=== PATIENT | female | born 1965 | race Caucasian/White ===

== ENCOUNTER → 2016-12-29 | Outpatient (CLI) | payer MEDICARE, MEDICAID ==
[~2016-12-29] MED LIST: ACET-3161 GT; AMIT10TA6 PO; AMLO5TAB88 PO; AMYL1CAP61 PO; ATOR20TA65 PO; CALC500T62 PO; CEPH500C2 PO; DICY10CA88 PO; ERGO400C PO; ESTR1PAT63; FAMO-38 PO; FURO-151 PO; GABA-531 PO; LIDO700A TP; LISI10TA5 PO; POTA20TA82 PO; ZOLP5TAB2 PO
== END | disposition home or self-care (01) ==
LOC: MAMMO 09:55
PROVIDERS: ATTEND Internal Medicine Nephrology
DX: Z12.31 Encounter for screening mammogram for malignant neoplasm of breast (principal)
CPT/HCPCS: G0202

== ENCOUNTER → 2017-12-30 | Outpatient (CLI) | payer MEDICARE, MEDICAID | END | disposition home or self-care (01) | LOC: MAMMO 09:33 | PROVIDERS: ATTEND Internal Medicine Nephrology | DX: Z12.31 Encounter for screening mammogram for malignant neoplasm of breast (principal) | CPT/HCPCS: 77067 ==

== ENCOUNTER → 2018-06-26 | Outpatient (CLI) | payer MEDICARE, MEDICAID | END | disposition home or self-care (01) | LOC: RAD 09:56 | PROVIDERS: ATTEND Podiatrist Foot & Ankle Surgery | DX: M20.42 Other hammer toe(s) (acquired), left foot (principal); M20.41 Other hammer toe(s) (acquired), right foot | CPT/HCPCS: 73630 ==

== ENCOUNTER → 2018-07-19 | Outpatient (CLI) | payer MEDICARE, MEDICAID | END | disposition home or self-care (01) | LOC: RAD 10:49 | PROVIDERS: ATTEND Internal Medicine Nephrology | DX: I51.7 Cardiomegaly (principal) | CPT/HCPCS: 71045 ==

== ENCOUNTER 2018-09-09 21:27 | Emergency (ER) | payer MEDICARE, MEDICAID ==
[~2018-09-09] VITALS: Ht 165.1 cm; Wt 86.0 kg
[~2018-09-09 21:27] MED LIST changes: -ACET-3161 GT; +ALEN70TA46 PO; -AMLO5TAB88 PO; +ASPI-1079 PO; +CELE-84 PO; -CEPH500C2 PO; +CHOL500051 PO; +CITA20SO PO; -ESTR1PAT63; -FAMO-38 PO; +HYDR-4009 PO; -LIDO700A TP; +LIP40 PO; -LISI10TA5 PO; +MAGN400T27 PO; +NYST15PO4 TP; +PANT40TA4 PO; +TRAM100C3 PO; +TRAM50TA94 PO
[2018-09-09 21:39] VITALS: BP 110/71
== END 2018-09-10 00:01 | disposition left against medical advice (07) ==
LOC: ER 21:27
DX: M54.9 Dorsalgia, unspecified (principal); Z53.21 Procedure and treatment not carried out due to patient leaving prior to being seen by health care provider

== ENCOUNTER → 2019-06-04 | Outpatient (CLI) | payer MEDICARE, MEDICAID ==
[~2019-06-04] MED LIST changes: -ALEN70TA46 PO; +ALEN70TA68 PO; -CITA20SO PO; +CITA20SO2 PO
== END | disposition home or self-care (01) ==
LOC: LAB 10:36
PROVIDERS: ATTEND Podiatrist Foot & Ankle Surgery
DX: M77.52 Other enthesopathy of left foot and ankle (principal)
CPT/HCPCS: 73630

== ENCOUNTER 2019-10-12 13:23 | Emergency (ER) | payer MEDICARE, MEDICAID ==
[~2019-10-12] VITALS: Ht 165.1 cm; Wt 89.0 kg
[~2019-10-12 13:23] MED LIST changes: -CLOT15CR5 TP; -DICL25TA2 PO; -FURO20TA4 PO; -GABA-529 PO
[2019-10-12 13:51] VITALS: BP 142/85
== END 2019-10-12 16:39 | disposition home or self-care (01) ==
LOC: ER 13:23
DX: L30.4 Erythema intertrigo (principal); Z79.899 Other long term (current) drug therapy; Z90.710 Acquired absence of both cervix and uterus
CPT/HCPCS: 99282

== ENCOUNTER → 2019-10-12 | Outpatient (CLI) | payer MEDICARE, MEDICAID ==
[~2019-10-12] MED LIST changes: +CLOT15CR5 TP; +DICL25TA2 PO; +FURO20TA4 PO; +GABA-529 PO; -MAGN400T27 PO; +MAGN400T8 PO
== END | disposition home or self-care (01) ==
LOC: RAD 12:20
PROVIDERS: ATTEND Internal Medicine Nephrology
DX: R06.02 Shortness of breath (principal)
CPT/HCPCS: 71045

== ENCOUNTER 2019-10-29 11:37 | Day surgery (SDC) | payer MEDICARE, MEDICAID ==
[~2019-10-29] VITALS: Ht 157.5 cm; Wt 88.9 kg
[~2019-10-29 11:37] MED LIST changes: +CLOT15CR5 TP
[2019-10-29] MEDS ORDERED: LACTATED RINGERS 1,000 ML IV SCH (12:35)
[2019-10-29] MEDS ORDERED: LIDOCAINE HCL 1% 20ML VIAL (Pyxis) INJ ONE (13:06)
[2019-10-29] MEDS ORDERED: BUPIVACAINE HCL/PF 0.5% (5MG/ML) 10ML ONE (13:06)
[2019-10-29] MEDS ORDERED: TRIAMCINOLONE ACETONIDE 40MG/ML 1ML VIAL ONE (13:06)
[2019-10-29] MEDS ORDERED: GENTAMICIN SULF 40MG/ML 2ML VIAL ONE (13:06)
[2019-10-29] MEDS ORDERED: BACITRACIN 50,000 UNITS/VIAL ONE (13:07)
[2019-10-29] MEDS ORDERED: GABA-529 PO (13:16)
[2019-10-29] MEDS ORDERED: FURO20TA4 PO (13:18)
[2019-10-29] MEDS ORDERED: DICL25TA2 PO (13:20)
[2019-10-29] MEDS ORDERED: HYDROMORPHONE HCL/PF 2MG/ML CPJ IV PRN (14:00)
[2019-10-29] MEDS ORDERED: ONDANSETRON HCL 4MG/2ML INJ IV PRN (14:00)
[2019-10-29] MEDS ORDERED: FENTANYL CITRATE/PF 50MCG/ML 2ML VIAL IV PRN (14:00)
== END 2019-10-29 17:15 | disposition home or self-care (01) ==
LOC: OR 11:37
PROVIDERS: ATTEND Podiatrist Foot & Ankle Surgery
DX: M20.42 Other hammer toe(s) (acquired), left foot (principal); M79.672 Pain in left foot; E78.00 Pure hypercholesterolemia, unspecified; Z85.43 Personal history of malignant neoplasm of ovary; Z79.899 Other long term (current) drug therapy; Z79.82 Long term (current) use of aspirin; Z90.710 Acquired absence of both cervix and uterus; Z98.890 Other specified postprocedural states
CPT/HCPCS: 28285; 73630; 88304; 88311; J0690; J1100; J1885; J2250; J2405; J2704; J3010; J3490; J1580; J3301

== ENCOUNTER 2023-06-26 14:23 | Emergency (ER) | payer MEDICARE, MEDICAID ==
[~2023-06-26] VITALS: Ht 160 cm; Wt 100.0 kg
[~2023-06-26 14:23] MED LIST changes: -ALEN70TA68 PO; +ALEN70TA79 PO; -CELE-84 PO; +DICL25TA10 PO; +DICY-18 PO; -DICY10CA88 PO; +FURO20TA4 PO; +GABA-529 PO; -GABA-531 PO; +MAGN400T55 PO; -MAGN400T8 PO; -PANT40TA4 PO; +PANT40TA51 PO; +POTA-205 PO; -POTA20TA82 PO; -TRAM100C3 PO
[2023-06-26 14:35] VITALS: O2SAT 97
[2023-06-26] MEDS ORDERED: IBUPROFEN 600MG TABLET PO STA (16:02)
[2023-06-26] MEDS ORDERED: HYDR-4001 MT (16:54)
[2023-06-26] MEDS ORDERED: NAPR-681 PO (16:54)
[2023-06-26 19:53] VITALS: BP 142/85; PULSE 91; RESP 18; TEMP 98.3
== END 2023-06-26 19:53 | disposition home or self-care (01) ==
LOC: ER 14:30
DX: M79.642 Pain in left hand (principal); I10 Essential (primary) hypertension; Z79.899 Other long term (current) drug therapy; W18.30XA Fall on same level, unspecified, initial encounter; Y93.89 Activity, other specified; Y92.89 Other specified places as the place of occurrence of the external cause; Y99.8 Other external cause status
CPT/HCPCS: 29125; 73090; 73130; 99284; A4565

== ENCOUNTER → 2025-03-12 | Outpatient (CLI) | payer MEDICARE, MEDICAID ==
[~2025-03-12] MED LIST changes: +HYDR-4001 MT; +NAPR-681 PO; +NYST15PO13 TP; -NYST15PO4 TP
[2025-03-12 10:37] LABS: BASOPHILS % 0.3 % (0.0-2.0); EOSINOPHILS % 1.3 % (0.0-5.0); HEMATOCRIT. 39.7 % (36.0-48.0); HEMOGLOBIN. 13.5 g/dL (12.0-16.0); LYMPHOCYTES % 31.2 % (20.0-50.0); MEAN CORPUSCULAR HEMOGLOBIN 30.3 pg (28.0-32.0); MEAN CORPUSCULAR VOLUME 89.4 fL (81.0-99.0); MEAN PLATELET VOLUME 7.7 fl (7.4-10.4); MONOCYTES % 5.3 % (2.0-8.0); NEUTROPHILS % 61.9 % (40.0-76.0); PLATELET 233 x1000/uL (130-400); RED BLOOD CELL COUNT 4.45 mill/uL (4.2-5.4); RED CELL DISTRIBUTION WIDTH 13.7 % (11.6-14.6); WHITE BLOOD COUNT 5.6 x1000/uL (4.5-11.0)
[2025-03-12 10:44] LABS: CHLORIDE 100 mEq/L (98-107); POTASSIUM 3.3 mEq/L (3.5-5.1); SODIUM 142 mEq/L (136-145)
[2025-03-12 10:45] LABS: CARBON DIOXIDE 35 mEq/L (21-32)
[2025-03-12 10:50] LABS: CREATININE 0.6 mg/dL (0.6-1.0); GLUCOSE 105 mg/dL (70-105); TRIGLYCERIDE 134 mg/dL (0-150); UREA NITROGEN BLOOD 8 mg/dL (9-23)
[2025-03-12 10:51] LABS: LDL CHOLESTEROL 68 mg/dL (5-100)
[2025-03-12 10:52] LABS: ALANINE AMINOTRANSFERASE 15 IU/L (10-49); ALBUMIN 4.4 g/dL (3.2-4.8); ASPARTATE AMINOTRANSFERASE 25 IU/L (<34); BILIRUBIN TOTAL 0.8 mg/dL (0.1-1.0); CHOLESTEROL 152 mg/dL (<200); HDL CHOLESTEROL 63 mg/dL (>65); PROTEIN TOTAL 6.9 g/dL (6.0-8.3)
[2025-03-12 10:54] LABS: T4 FREE 1.16 ng/dL (0.89-1.76); THYROID STIMULATING HORMONE 1.27 uIU/mL (0.55-4.78)
== END | disposition home or self-care (01) ==
LOC: LAB 09:44
PROVIDERS: ATTEND Internal Medicine Nephrology
DX: I10 Essential (primary) hypertension (principal); E11.9 Type 2 diabetes mellitus without complications; E03.9 Hypothyroidism, unspecified; E87.6 Hypokalemia
CPT/HCPCS: 36415; 80053; 80061; 84439; 84443; 85025

== ENCOUNTER → 2025-06-18 | Outpatient (CLI) | payer MEDICARE, MEDICAID ==
[~2025-06-18] MED LIST changes: +AMIT10TA13 PO; -AMIT10TA6 PO
[2025-06-18 10:37] LABS: BASOPHILS % 0.4 % (0.0-2.0); EOSINOPHILS % 0.9 % (0.0-5.0); HEMATOCRIT. 40.0 % (36.0-48.0); HEMOGLOBIN. 13.6 g/dL (12.0-16.0); LYMPHOCYTES % 34.7 % (20.0-50.0); MEAN PLATELET VOLUME 7.9 fl (7.4-10.4); MONOCYTES % 5.5 % (2.0-8.0); NEUTROPHILS % 58.5 % (40.0-76.0); PLATELET 232 x1000/uL (130-400); RED BLOOD CELL COUNT 4.58 mill/uL (4.2-5.4); RED CELL DISTRIBUTION WIDTH 13.4 % (11.6-14.6)
[2025-06-18 10:44] LABS: INR 1.0
[2025-06-18 11:24] LABS: CREATININE 0.7 mg/dL (0.6-1.0); UREA NITROGEN BLOOD 10 mg/dL (9-23)
[2025-06-18 11:26] LABS: ASPARTATE AMINOTRANSFERASE 53 IU/L (<34); BILIRUBIN TOTAL 0.5 mg/dL (0.1-1.0); PROTEIN TOTAL 7.4 g/dL (6.0-8.3)
[2025-06-18 12:03] LABS: HEPATITIS C AB NON REACTIVE (Neg) (Negative)
[2025-06-19 09:12] LABS: ALPHA FETOPROTEIN TUMOR MARKER 2.4 ng/mL (0.0-9.2); ALPHA-1 ANTI-TRYPSIN 158 mg/dL (101-187)
[2025-06-19 13:11] LABS: ANTI-NUCLEAR ANTIBODIES DIRECT Negative (Negative); HEPATITIS A ANTIBODY TOTAL Positive (Negative); HEPATITIS B CORE ANTIBODY Negative (Negative); HEPATITIS B SURFACE AB QUAL Non Reactive (.)
[2025-06-20 13:12] LABS: ACTIN (SMOOTH MUSCLE) ANTIBODY 7 Units (0-19); MITOCHONDRIAL M2 AB <20.0 Units (0.0-20.0)
[2025-06-20 19:06] LABS: QFT MITOGEN VALUE >10.00 IU/mL (.); QFT TB GOLD PLUS Negative (Negative); QFT TB1 AG VALUE 0.15 IU/mL (.); QFT TB2 AG VALUE 0.17 IU/mL (.)
== END | disposition home or self-care (01) ==
LOC: LAB 09:35
DX: E88.810 Metabolic syndrome (principal); R74.8 Abnormal levels of other serum enzymes; F19.20 Other psychoactive substance dependence, uncomplicated; Z12.11 Encounter for screening for malignant neoplasm of colon; Z99.3 Dependence on wheelchair; Z68.31 Body mass index [BMI] 31.0-31.9, adult; Z79.899 Other long term (current) drug therapy
CPT/HCPCS: 36415; 80053; 82103; 82104; 82105; 82728; 82784; 83036; 83516; 83540; 83550; 84443; 85025; 86038; 86480; 86704; 86705; 86706; 86708; 86803